=== PATIENT | female | born 1970 | race Caucasian/White ===

== ENCOUNTER 2018-10-21 06:01 | Emergency (ER) | payer OTHER ==
[~2018-10-21] VITALS: Ht 152.4 cm; Wt 136.1 kg
[~2018-10-21 06:01] MED LIST: ASPI81EC PO; DIPATR PO; HYDACE5 PO; LEVSOD100 PO; LOPE2C PO; NAPR500 PO; PARO20 PO; PROM25 PO; TRAM50 PO; TRAZ150T57 PO; ZOLP10 PO
[2018-10-21] MEDS ORDERED: SERT100 PO (06:50)
[2018-10-21] MEDS ORDERED: RIZATRIPTAN10 MG PO (06:51)
[2018-10-21] MEDS ORDERED: TRAZ50 PO (06:51)
[2018-10-21] MEDS ORDERED: BUSP15 PO (06:52)
[2018-10-21] MEDS ORDERED: TOPI50 PO (06:52)
[2018-10-21] MEDS ORDERED: METO100ER PO (06:53)
[2018-10-21 07:15] LABS: BASOPHILS ABSOLUTE AUTO 0.05 K/mm3 (0.00-0.23); BASOPHILS PERCENT AUTO 0 % (0-2); EOSINOPHILS ABSOLUTE AUTO 0.01 K/mm3 (0.00-0.68); EOSINOPHILS PERCENT AUTO 0 % (0-6); Hematocrit 47.6 % (33.0-51.0); Hemoglobin 15.1 g/dL (11.5-16.0); IMMATURE GRAN ABSOLUTE AUTO 0.03 K/mm3 (0.00-0.10); IMMATURE GRAN PERCENT AUTO 0 % (0-1); LYMPHOCYTES ABSOLUTE AUTO 1.54 K/mm3 (0.84-5.20); LYMPHOCYTES PERCENT AUTO 13 % (21-46); MONOCYTES ABSOLUTE AUTO 0.63 K/mm3 (0.16-1.47); MONOCYTES PERCENT AUTO 5 % (4-13); Mean Corpuscular HGB 28.5 pg (26.0-34.0); Mean Corpuscular HGB Conc 31.7 g/dL (31.5-36.5); Mean Corpuscular Volume 90 fL (80-100); Mean Platelet Volume 8.6 fL (9.1-12.4); NEUTROPHILS ABSOLUTE AUTO 9.54 K/mm3 (1.96-9.15); NEUTROPHILS PERCENT AUTO 81 % (41-73); Platelet Count 312 K/mm3 (150-400); RDW Coefficient Variation 13.3 % (11.7-14.2); RDW Standard Deviation 44.4 fL (35.1-46.3)
[2018-10-21 07:37] LABS: Alanine Aminotransfer (ALT/SGP 37 U/L (12-78); Albumin, Blood 3.8 g/dL (3.4-5.0); Alk Phos 95 U/L (50-136); Anion Gap 10 mmol/L (6-16); Aspartate Aminotrans (AST/SGOT 27 U/L (12-37); Bilirubin, Total 0.5 mg/dL (0.1-1.0); Blood Urea Nitrogen 6 mg/dL (8-24); CO2, Blood 26 mmol/L (21-32); Calcium, Blood 8.9 mg/dL (8.5-10.1); Chloride, Blood 105 mmol/L (98-108); Creatinine, Blood 0.75 mg/dL (0.40-1.00); Globulin, Blood 3.8 g/dL (2.2-4.0); Glomerular Filtration Rate >60 (60-); Glucose, Blood 121 mg/dL (70-99); Potassium, Blood 3.1 mmol/L (3.5-5.5); Sodium, Blood 141 mmol/L (136-145); Total Protein, Blood 7.6 g/dL (6.4-8.2)
[2018-10-21 08:55] LABS: Source, Urine Clean Catch
[2018-10-21 09:01] LABS: Bilirubin, Urine Neg (Neg); Blood, Urine 1+ (Neg); Glucose Qualitative, Urine Neg (Neg); Ketones, Urine 3+ (Neg); Leukocyte Esterase, Urine Neg (Neg); Nitrite, Urine Neg (Neg); Protein, Urine 1+ (Neg); Urobilinogen, Urine NORM (Normal)
[2018-10-21 09:07] LABS: Appearance, Urine Hazy (Clear); Color, Urine Yellow (P-Yellow)
[2018-10-21 09:08] LABS: Bacteria Few /hpf; Red Blood Cells, Urine Rare /hpf (0-2); Squamous Epithelial Cells Many /hpf (Few); White Blood Cells, Urine Not Seen /hpf (0-5)
[2018-10-21] MEDS ORDERED: PROM25 PO (12:42)
== END 2018-10-21 13:00 | disposition home or self-care (01) ==
LOC: ER 06:01
PROVIDERS: Emergency Medicine
DX: A08.4 Viral intestinal infection, unspecified (principal); E03.9 Hypothyroidism, unspecified; F32.9 Major depressive disorder, single episode, unspecified; R16.0 Hepatomegaly, not elsewhere classified
CPT/HCPCS: 36415; 74177; 80053; 81001; 83690; 85025; 96361; 96374; 96375; 96376; 99284-25; J2405; J2550; J7120; Q9967

== ENCOUNTER 2021-01-25 10:29 | Inpatient (IN) | payer OTHER ==
[~2021-01-25] VITALS: Ht 157.5 cm; Wt 141.5 kg
[~2021-01-25 10:29] MED LIST changes: -ASPI81EC PO; +Aspirin EC81 MG PO; +BUSP15 PO; +METO100ER PO; +RIZATRIPTAN10 MG PO; +SERT100 PO; +TOPI50 PO; +TRAZ50 PO
[2021-01-25 10:46] LABS: BASOPHILS ABSOLUTE AUTO 0.02 K/mm3 (0.00-0.23); BASOPHILS PERCENT AUTO 0 % (0-2); EOSINOPHILS ABSOLUTE AUTO 0.01 K/mm3 (0.00-0.68); EOSINOPHILS PERCENT AUTO 0 % (0-6); Hematocrit 48.7 % (33.0-51.0); Hemoglobin 16.1 g/dL (11.5-16.0); IMMATURE GRAN ABSOLUTE AUTO 0.04 K/mm3 (0.00-0.10); IMMATURE GRAN PERCENT AUTO 1 % (0-1); LYMPHOCYTES ABSOLUTE AUTO 0.91 K/mm3 (0.84-5.20); LYMPHOCYTES PERCENT AUTO 11 % (21-46); MONOCYTES ABSOLUTE AUTO 0.45 K/mm3 (0.16-1.47); MONOCYTES PERCENT AUTO 5 % (4-13); Mean Corpuscular HGB 27.3 pg (26.0-34.0); Mean Corpuscular HGB Conc 33.1 g/dL (31.5-36.5); Mean Corpuscular Volume 83 fL (80-100); Mean Platelet Volume 8.6 fL (9.1-12.4); NEUTROPHILS ABSOLUTE AUTO 7.03 K/mm3 (1.96-9.15); NEUTROPHILS PERCENT AUTO 83 % (41-73); Platelet Count 265 K/mm3 (150-400); RDW Coefficient Variation 13.3 % (11.7-14.2); RDW Standard Deviation 40.5 fL (35.1-46.3); Red Blood Cell Count 5.89 M/mm3 (3.80-5.20); White Blood Cell Count 8.46 K/mm3 (4.00-11.30)
[2021-01-25 11:02] LABS: Alanine Aminotransfer (ALT/SGP 41 U/L (12-78); Albumin, Blood 3.2 g/dL (3.4-5.0); Albumin/Globulin Ratio 0.7 (0.8-1.8); Alk Phos 118 U/L (50-136); Anion Gap 8 mmol/L (6-16); Aspartate Aminotrans (AST/SGOT 51 U/L (12-37); Bilirubin, Total 0.6 mg/dL (0.1-1.0); Blood Urea Nitrogen 17 mg/dL (8-24); Bun/Creatinine Ratio 18.7 (12.0-20.0); CO2, Blood 36 mmol/L (21-32); Calcium, Blood 8.8 mg/dL (8.5-10.1); Chloride, Blood 89 mmol/L (98-108); Creatinine, Blood 0.91 mg/dL (0.40-1.00); Globulin, Blood 4.9 g/dL (2.2-4.0); Glomerular Filtration Rate >60 (60-); Glucose, Blood 148 mg/dL (70-99); Potassium, Blood 2.3 mmol/L (3.5-5.5); Sodium, Blood 133 mmol/L (136-145); Total Protein, Blood 8.1 g/dL (6.4-8.2)
[2021-01-25] MEDS ORDERED: BUSPIRONE HCL10 M1 PO (13:53)
[2021-01-25] MEDS ORDERED: ZOLOFT25 MG PO (13:54)
[2021-01-25] MEDS ORDERED: EUTHYROX100 MC1 PO (13:54)
[2021-01-25] MEDS ORDERED: K-Dur10 MEQ PO (13:55)
[2021-01-25] MEDS ORDERED: CHLO25B PO (13:55)
[2021-01-25] MEDS ORDERED: OMEP20ER PO (13:56)
--- NOTE | 2021-01-25 17:12 | NUR ---
PT ADMITTED FROM ER TODAY WITH VOMITTING AND DIARRHEA FOR THE LAST WEEK. SHE IS ALERT AND ORIENTED AND ABLE TO EXPRESS ANY NEEDS. SHE HAS NO SKIN BREAKDOWN. PT IS GETTING K+, TOLERATING SLOW INFUSION. CALL LIGHT WITHIN REACH.
[2021-01-25 20:45] LABS: U Amphetamine Screen Not Detected; U Barbituate Screen Not Detected; U Benzodiazapine Screen Not Detected; U Buprenorphine Screen Not Detected; U Cannabinoids Screen Not Detected; U Cocaine Screen Not Detected; U Methadone Screen Not Detected; U Methamphetamine Screen Not Detected; U Opiates Screen Not Detected; U Oxycodone Screen Not Detected; U Phencyclidine Screen Not Detected; U Propoxyphene Screen Not Detected
[2021-01-26 03:49] LABS: Adenovirus F 40/41 Not Detected (NOT DETECT); Astrovirus Not Detected (NOT DETECT); Campylobacter Sp Not Detected (NOT DETECT); Cryptosporidium Not Detected (NOT DETECT); Cyclospora Cayetanensis Not Detected (NOT DETECT); E. Coli O157 Not Detected (NOT DETECT); Entamoeba Histolytica Not Detected (NOT DETECT); Enteroaggregative E. coli-EAEC Not Detected (NOT DETECT); Enteropathogenic E. coli-EPEC Not Detected (NOT DETECT); Enterotoxigenic E. coli-ETEC Not Detected (NOT DETECT); Giardia Lamblia Not Detected (NOT DETECT); Norovirus GI/GII Not Detected (NOT DETECT); Plesiomonas Shigelloides Not Detected (NOT DETECT); Rotavirus A Not Detected (NOT DETECT); Salmonella Sp Not Detected (NOT DETECT); Sapovirus Not Detected (NOT DETECT); Shiga Toxin-prod E. coli-STEC Not Detected (NOT DETECT); Shigella/Enteroin E. coli-EIEC Not Detected (NOT DETECT); Vibrio Cholerae Not Detected (NOT DETECT); Vibrio Sp Not Detected (NOT DETECT); Yersinia Enterocolitica Not Detected (NOT DETECT)
--- NOTE | 2021-01-26 04:45 | NUR ---
SHIFT SUMMARY PT OVERALL DOES NOT FEEL WELL. HAD NAUSEA THROUGHOUT THE NIGHT. IMPROVED WITH MEDICATION BUT NEVER COMPLETELY RESOLVED. NEW ORDERS FOR REGLAN 10 MG Q 6 PRN AND A ONE TIME DOSE OF 4 MG IV ZOFRAN. K RIDERS INFUSED THIS EVENING. PT HAD SEVERAL POPSICLES, SOME DRY HEAVING FOLLOWING BUT NO EMESIS. PT REPORTS ABD IS TENDER TO PALPATION BUT DENIES ANY ABD PAIN. PT HAD TWO EPISODES OF WATERY STOOL THIS EVENING. GI PANEL SENT AND CAME BACK NEGATIVE. TELEMETRY READING SR 94. PT AFEBRILE. VSS. WILL CONTINUE TO MONITOR.
[2021-01-26 05:03] LABS: Hematocrit 40.5 % (33.0-51.0); Hemoglobin 12.9 g/dL (11.5-16.0); Mean Corpuscular HGB 27.2 pg (26.0-34.0); Mean Corpuscular HGB Conc 31.9 g/dL (31.5-36.5); Mean Corpuscular Volume 85 fL (80-100); Mean Platelet Volume 8.7 fL (9.1-12.4); Platelet Count 231 K/mm3 (150-400); RDW Coefficient Variation 13.8 % (11.7-14.2); RDW Standard Deviation 43.1 fL (35.1-46.3); Red Blood Cell Count 4.75 M/mm3 (3.80-5.20); White Blood Cell Count 9.38 K/mm3 (4.00-11.30)
[2021-01-26 05:30] LABS: Anion Gap 5 mmol/L (6-16); Blood Urea Nitrogen 12 mg/dL (8-24); Bun/Creatinine Ratio 12.7 (12.0-20.0); CO2, Blood 36 mmol/L (21-32); Chloride, Blood 98 mmol/L (98-108); Creatinine, Blood 0.95 mg/dL (0.40-1.00); Glomerular Filtration Rate >60 (60-); Glucose, Blood 112 mg/dL (70-99); Magnesium, Blood 2.1 mg/dL (1.6-2.4); Potassium, Blood 2.5 mmol/L (3.5-5.5); Sodium, Blood 139 mmol/L (136-145)
--- NOTE | 2021-01-26 13:22 | NUR ---
Patient is lying in bed and alert. Patient tells me about the virus that she has and about the potassium that is neded. 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 Patient also talks at length about her [employer]ist [employer] and her membership at [employer]. I normalize the exhaustion and fear that she has and provide therapeutic listening, pastoral funeral counselor and prayer. Patient responds well and shows signs of reduced stress and being encouraged in her katherine. I will continue to remain available to patient and family.
--- NOTE | 2021-01-26 17:26 | NUR ---
SHIFT SUMMARY PATIENT DENIES PAIN AND REPORTS OCCASSIONAL MILD NAUSEA. NO DIARRHEA THIS SHIFT. CLEAR LIQUID DIET. UP INDEPENDENT TO BSC. REPEAT POTASSIUM THIS AFTERNOON SHOWS CRITICAL LOW OF 2.4. CALL TO DR. ADDISON, NEW ORDERS FOR ONE TIME PO POTASSIUM, IV POTASSIUM AND IV MAGNESIUM.
--- NOTE | 2021-01-27 05:12 | NUR ---
SHIFT SUMMARY PT FEELING SLIGHTLY BETTER THIS EVENING. NAUSEA SOMEWHAT IMPROVED BUT NOT RESOLVED. DID NOT REQUIRE ANY PRN'S TONIGHT. POTASSIUM INCREASED FROM 2.4 TO 3.0 AFTER COMPLETION OF [address] CHAMBERLAIN WITH NEW ORDERS FOR AN ADDITIONAL 40 MEQ IV. INFUSING AT THIS TIME. PT TOLERATED INFUSIONS WELL. ONE EPISODE OF WATERY STOOL. PT TOLERATED PO MEDICATIONS. TELEMETRY READING SR 79. VITAL SIGNS STABLE. WILL CONTINUE TO MONITOR.
[2021-01-27 06:49] LABS: Anion Gap 4 mmol/L (6-16); Blood Urea Nitrogen 5 mg/dL (8-24); Bun/Creatinine Ratio 6.2 (12.0-20.0); CO2, Blood 33 mmol/L (21-32); Calcium, Blood 7.9 mg/dL (8.5-10.1); Chloride, Blood 102 mmol/L (98-108); Glomerular Filtration Rate >60 (60-); Glucose, Blood 104 mg/dL (70-99); Potassium, Blood 3.1 mmol/L (3.5-5.5); Sodium, Blood 139 mmol/L (136-145)
--- NOTE | 2021-01-27 18:27 | NUR ---
SHIFT SUMMARY PATIENT DENIES PAIN, MEDICATED X1 FOR NAUSEA, AND X1 FOR LOW GRADE FEVER. PATIENT REPORTED NOT FEELING WELL DURING VITALS THIS MORNING. PATIEN OXYGEN SATURATION FOUND TO BE 87%, 2L/NC APPLIED. PATIENT REPORTED FEELING BETTER WITHIN THE HOUR AND WAS ABLE TO BE TITRATED BACK TO ROOM AIR SHORTLY AFTER. DR. ADDISON INFOMRED OF SITUATION DURING ROUNDING, AND ADVISED PATIENT TO FOLLOW UP OUTPATIENT WITH SLEEP STUDY TO RULE OUT SLEEP APNEA. PATIENT UP SBA IN ROOM. PATIENT HAD 2 EPISODES OF DIARRHEA TODAY. POTASSIUM LAB UPON RECHECK 3.0 AT 1100. NEW ORDER FOR 40 MEQ X1 GIVEN, NEXT LAB DRAW AT 1900.
[2021-01-28 05:07] LABS: Anion Gap 3 mmol/L (6-16); Blood Urea Nitrogen 5 mg/dL (8-24); Bun/Creatinine Ratio 7.1 (12.0-20.0); CO2, Blood 32 mmol/L (21-32); Calcium, Blood 7.5 mg/dL (8.5-10.1); Chloride, Blood 107 mmol/L (98-108); Creatinine, Blood 0.71 mg/dL (0.40-1.00); Glomerular Filtration Rate >60 (60-); Glucose, Blood 127 mg/dL (70-99); Sodium, Blood 142 mmol/L (136-145)
--- NOTE | 2021-01-28 05:33 | NUR ---
FIRE SPRINKLER INSTALLER SUMMARY PT A/O X4. INDEPENDENT TO BSC. DENIES PAIN, SOB AND NAUSEA. REGULAR DIET, TOLERATED WELL. TELE BEEN RUNNING SR IN THE 'S. SLEPT WELL TONIGHT. ROOM AIR. PLEASANT AND COOPERATIVE. PT HAD ONE LITTLE LOOSE BOWEL SMEAR TONIGHT PER EXCELLENCE LEADER. CALL LIGHT WITHIN REACH. VSS
[2021-01-28] MEDS ORDERED: AMLO10 PO (10:45)
--- NOTE | 2021-01-28 18:40 | NUR ---
1705 PT DISHCARGED HOME VIA PERSONAL VEHICLE ACCOMPANIED AND DRIVEN BY SON. NEW RX FAXED TO [facility] PER PT REQUEST. IV REMOVED. D/C PAPERWORK REVIEWED WITH PT AND COPY PROVIDED. PT RECIEVED SHOWER PRIOR TO D/C WITH ASSISTANCE OF SEWER REPAIRER. PT CONTINUED WITH LOOSE STOOLS DURING SHIFT, SHE REPORTED THAT FREQUENCY HAS DECREASED. NO OTHER CHANGES OR CONCERNS.
== END 2021-01-28 17:05 | disposition home or self-care (01) | DRG 641 ==
LOC: ER 10:29 → MEDS 13:46
PROVIDERS: Emergency Medicine; Internal Medicine; Nurse Practitioner Acute Care; ADMIT Family Medicine
DX: E87.6 Hypokalemia (principal); Z68.43 Body mass index [BMI] 50.0-59.9, adult; A08.4 Viral intestinal infection, unspecified; E87.1 Hypo-osmolality and hyponatremia; R94.31 Abnormal electrocardiogram [ECG] [EKG]; I10 Essential (primary) hypertension; E03.9 Hypothyroidism, unspecified; G43.909 Migraine, unspecified, not intractable, without status migrainosus; F32.9 Major depressive disorder, single episode, unspecified; F41.9 Anxiety disorder, unspecified; E66.9 Obesity, unspecified; Z88.5 Allergy status to narcotic agent; Z79.899 Other long term (current) drug therapy; Z79.82 Long term (current) use of aspirin; Z79.891 Long term (current) use of opiate analgesic
CPT/HCPCS: 0097U; 36415; 74177; 80048; 80053; 83690; 83735; 84132; 85025; 85027; 93005; 93010; 96365; 96375; 99285-25; A9270; J1650; J2405; J2765; J3475; J3480; J7030; Q9967

== ENCOUNTER 2022-01-16 07:36 | Day surgery (SDC) | payer OTHER ==
[~2022-01-16] VITALS: Ht 157.5 cm; Wt 139.1 kg
[~2022-01-16 07:36] MED LIST changes: +AMLO10 PO; +BUSPIRONE HCL10 M1 PO; +CHLO25B PO; +EUTHYROX100 MC1 PO; +K-Dur10 MEQ PO; +OMEP20ER PO; +Prinivil10 MG PO; +ZOLOFT25 MG PO
--- NOTE | 2022-01-16 08:31 | NUR ---
01/16/22 0831 Norman Ceron CALL LIGHT WITHIN REACH
== END 2022-01-16 10:07 | disposition home or self-care (01) ==
LOC: ORSCSDS 07:36
PROVIDERS: Student in an Organized Health Care Education/Training Program
PROC: 0DBE8ZX Excision of Large Intestine, Via Natural or Artificial Opening Endoscopic, Diagnostic (ICD-10-PCS; principal; 2022-01-16 09:00)
PROC: 0DBK8ZX Excision of Ascending Colon, Via Natural or Artificial Opening Endoscopic, Diagnostic (ICD-10-PCS; principal; 2022-01-16 09:00)
PROC: 0DB48ZX Excision of Esophagogastric Junction, Via Natural or Artificial Opening Endoscopic, Diagnostic (ICD-10-PCS; principal; 2022-01-16 09:00)
PROC: 0DB58ZX Excision of Esophagus, Via Natural or Artificial Opening Endoscopic, Diagnostic (ICD-10-PCS; principal; 2022-01-16 09:00)
DX: K92.1 Melena (principal); R13.10 Dysphagia, unspecified; D12.2 Benign neoplasm of ascending colon; K20.90 Esophagitis, unspecified without bleeding; K22.2 Esophageal obstruction; K21.9 Gastro-esophageal reflux disease without esophagitis; K62.89 Other specified diseases of anus and rectum; I10 Essential (primary) hypertension; G47.33 Obstructive sleep apnea (adult) (pediatric); E03.9 Hypothyroidism, unspecified; E66.01 Morbid (severe) obesity due to excess calories; Z68.43 Body mass index [BMI] 50.0-59.9, adult; F41.8 Other specified anxiety disorders; Z79.899 Other long term (current) drug therapy; Z79.82 Long term (current) use of aspirin
CPT/HCPCS: 88305; J2250; J2704; J7120